=== PATIENT | male | born 1960 | race Caucasian/White ===

== ENCOUNTER 2024-10-22 08:12 | Day surgery (SDC) | payer MEDICARE ==
[~2024-10-22 08:12] MED LIST: ALPRAZolam 0.25 MG TAB PO PRN; ALPRAZolam 0.5 MG TAB PO PRN; NITROGLYCERIN SL TABS 0.4 MG TAB SUBLINGUAL PRN
[2024-10-22] MEDS: ATORVASTATIN 80 MG TAB PO STA (08:39)
[2024-10-22] MEDS: ASPIRIN 325 MG TAB PO STA (08:39)
[2024-10-22] MEDS: SODIUM CHLORIDE 0.9% 1,000 ML in EMPTY BAG 1 BAG IV SCH (08:40)
[2024-10-22] MEDS: IV FLUID CONTINUATION 1,000 ML IV ONE (08:40)
[2024-10-22 08:50] LABS: Basophils # (A) 0.12 10*3/uL (0.00-0.10); Basophils % (A) 1.2 %; Eosinophils # (A) 0.45 10*3/uL (0.04-0.35); Eosinophils % (A) 4.4 %; HCT 51.5 % (39.6-50.0); HGB 17.9 g/dL (13.0-17.0); Lymphocytes % (A) 17.6 %; MCH 32.9 pg (27.0-32.0); MCHC 34.8 g/dL (32.0-37.0); MCV 94.7 fL (80.0-97.0); Mean Platelet Volume 10.3 fL (9.5-12.2); Monocytes # (A) 0.93 10*3/uL (0.20-1.00); Monocytes % (A) 9.1 %; Neutrophils # (A) 6.88 10*3/uL (1.80-7.70); Neutrophils % (A) 67.4 %; Platelet Count 251 10*3/uL (140-440); RBC 5.44 10*6/uL (4.40-5.60); RDW 14.8 % (11.5-14.5); WBC 10.21 10*3/uL (4.50-10.00)
[2024-10-22] MEDS: HEPARIN SODIUM,PORCINE (1 ML) 2,500 UNIT in SODIUM CHLORIDE 0.9% 250 ML IRRIGATION PRN (08:56)
[2024-10-22] MEDS: HEPARIN SODIUM,PORCINE 10,000 UNIT in SODIUM CHLORIDE 0.9% 1,000 ML IRRIGATION PRN (08:56)
[2024-10-22] MEDS: SODIUM CHLORIDE 0.9% 1,000 ML IV ONE (08:56)
[2024-10-22 09:01] LABS: African American GFR (CKD) >90 (>60 ml/min/1.73 sqM); Anion Gap 7 mmol/L; Blood Urea Nitrogen 16 mg/dL (9-20); Calcium 9.4 mg/dL (8.4-10.2); Carbon Dioxide 28 mmol/L (22-30); Chloride 106 mmol/L (98-107); Glucose 108 mg/dL (74-99); Non-African American GFR(CKD) >90 (>60 ml/min/1.73 sqM); Potassium 4.5 mmol/L (3.5-5.1); Sodium 141 mmol/L (137-145)
[2024-10-22] MEDS: MIDAZOLAM 2 MG/2 ML VIAL IVP ONE (09:26)
[2024-10-22] MEDS: fentaNYL (PF) 50 MCG/1 ML VIAL IVP ONE (09:27)
[2024-10-22] MEDS: LIDOCAINE 1% INJ 10MG/ML (20 ML MDV) SQ ONE (09:30)
[2024-10-22] MEDS: VERAPAMIL SYRINGE (5 MG/10 ML) INTRAARTER ONE (09:32)
[2024-10-22] MEDS: HEPARIN SODIUM 1,000 UN/ML (10ML VL) IV ONE (09:34)
[2024-10-22] MEDS: IOPAMIDOL-370 100ML BTL INJ ONE (09:42)
--- NOTE | 2024-10-22 09:52 | P.CARDCATH ---
Description of Procedure: PROCEDURES PERFORMED: Left heart catheterization, bilateral coronary angiography, ultrasound guided arterial access INDICATION: abnormal stress test CONSENT:The risks, benefits and alternative therapies for the above-mentioned procedure and for both sedation/analgesia as well as necessary blood product administration, if indicated, as they pertain to this patient were discussed with the patient. The patient has indicated understanding and acceptance of the risks and procedures discussed. PROCEDURE: After the risks, benefits and alternatives of the above mentioned procedure explained in detail with the patient, informed consent was obtained. Patient was taken to the catheterization lab and prepped and draped in usual fashion. Ultrasound guidance was used to assess for arterial access. 1% lidocaine was used to anesthetize the right radial artery. A 6-[facility] sheath was placed in the right radial artery using modified Seldinger technique and ultrasound guidance. Left coronary angiography was performed with a 5-[facility] JL 3.5 catheter and right coronary angiography was performed with a 5-[facility] AR2 catheter in various views. A 5-[facility] FR5 catheter was inserted into the left ventricle and pressure measurements were obtained. The right radial sheath was removed and a TR band was placed with hemostasis achieved. The patient tolerated the procedure well. Patient was transported back to the post catheterization holding area in stable condition. Conscious Sedation: Patient was monitored under the direct supervision of myself for conscious sedation using Versed and fentanyl for a total duration of 13 minutes HEMODYNAMICS: aortic: 124/100 LV: 128/20, LVEDP 24 SELECTIVE CORONARY ARTERIOGRAPHY: LEFT MAIN: The left main is a large caliber vessel which bifurcates into the LAD and circumflex. There is no significant stenosis. LEFT ANTERIOR DESCENDING CORONARY ARTERY: LAD is a large caliber vessel which wraps around to the apex. There are diffuse 20% RCA stenosis of approximately. LEFT CIRCUMFLEX CORONARY ARTERY: Left circumflex is a moderate caliber vessel with diffuse 20% stenosis RIGHT CORONARY ARTERY: The right coronary artery is a large caliber vessel which gives off a PDA and PLV branch and is the dominant vessel. There is diffuse 20% stenosis of the RCA FINAL IMPRESSION: 1. Diffuse mild CAD with 20% RCA, LAD, circumflex stenosis. 2. Elevated left sided filling pressures 3. Patient noted to be in atrial flutter with HR's 90's throughout the exam. PLAN: 1. Aggressive risk factor modification per most recent ACC/AHA guidelines. 2. Follow-up in the office in 1-2 weeks.
[2024-10-22 10:35] VITALS: RESP 16
[2024-10-22 10:41] VITALS: TEMP 98.4
[2024-10-22 12:46] VITALS: PULSE 63
[2024-10-22 13:51] VITALS: BP 128/86
== END 2024-10-22 13:04 | disposition home or self-care (01) ==
LOC: CATHCVL 08:12
PROVIDERS: ATTEND Internal Medicine
DX: I25.10 Atherosclerotic heart disease of native coronary artery without angina pectoris (principal); I48.3 Typical atrial flutter; E78.5 Hyperlipidemia, unspecified; I87.2 Venous insufficiency (chronic) (peripheral); F17.210 Nicotine dependence, cigarettes, uncomplicated; Z79.82 Long term (current) use of aspirin; Z79.899 Other long term (current) drug therapy; Z82.49 Family history of ischemic heart disease and other diseases of the circulatory system
CPT/HCPCS: 93458; 80048; 85025; C1769; C1894; J2250; J1644 ×3; J2003; Q9967; J3010